=== PATIENT | female | born 1995 | race Caucasian/White ===

== ENCOUNTER 2019-06-06 19:15 | Emergency (ER) | payer MEDICAID ==
[2019-06-06] MEDS ORDERED: Levofloxacin 750 MG Tab PO STA (20:24)
--- NOTE | 2019-06-06 20:33 | EDM.PDOC ---
ED HPI GENERAL MEDICAL PROBLEM - General Chief Complaint: Genitourinary Problem Stated Complaint: LOWER BACK PAIN Time Seen by Provider: 06/06/19 20:02 Source of Information: Reports: Patient History Limitations: Reports: No Limitations - History of Present Illness INITIAL COMMENTS - FREE TEXT/NARRATIVE: Ms. Jackson is a very pleasant 23-year-old woman with no chronic medical problems , who states that she developed bilateral flank pain, worse on the right than the left, yesterday. She had nausea and chills yesterday, but she did not check her temperature. She has not had any dysuria, but she has had both urinary frequency and urinary urgency. She developed the sensation of bladder fullness last night, which has become more profound today. The patient states that she started taking gyxh-drj-weuqodm Azo yesterday, and continued it today. The patient states that she had similar symptoms, excluding the flank pain, several years ago, due to a UTI. The patient denies recent sore throat, ear pain, nasal or sinus congestion, cough, dyspnea, chest pain, palpitations, vomiting, constipation, diarrhea, abdominal pain, recent weight gain or weight loss, recent bloody bowel movements or black bowel movements, recent joint aches, headaches, or rashes. Here in the ED, the patient is found to be hemodynamically stable, afebrile, saturating 99% on room air. The patient is sexually active. Her LMP was 05/27/2019. The patient's PCP is AMAURI Tejada. Her Stemhole Borer And Topper is Dr. Nurys Pérez. She did not receive an influenza vaccine this season, and declined an offer to receive one here today. Lower Back Pain Score (Numeric/FACES): 8 - Related Data Allergies Allergy/AdvReac Type Severity Reaction Status Date / Time No Known Allergies Allergy Verified 06/06/19 19:30 Home Meds: Home Meds Levofloxacin [Levaquin] 1 tab PO QPM #4 tablet 06/06/19 [Rx] Past Medical History - Past Surgical History HEENT Surgical History: Reports: Oral Surgery (wisdom teeth extraction) Social & Family History - Tobacco Use Smoking Status *Q: Never Smoker Tobacco Use Within Last Twelve Months: Vaping (nicotine) - Alcohol Use Alcohol Use History: Yes Alcohol Use Frequency: Socially - Recreational Drug Use Recreational Drug Use: No - Living Situation & Occupation Living situation: Reports: Single, Alone Occupation: Unemployed ED ROS GENERAL - Review of Systems Review Of Systems: Comprehensive ROS is negative, except as noted in HPI. ED EXAM, RENAL/ - Physical Exam Exam: See Below Exam Limited By: No Limitations General Appearance: Alert, WD/WN, No Apparent Distress Eye Exam: Bilateral Eye: EOMI, Normal Inspection Ears: Normal External Exam, Hearing Grossly Normal Nose: Normal Inspection Throat/Mouth: Normal Inspection, Normal Lips, Normal Voice, No Airway Compromise Head: Atraumatic, Normocephalic Neck: Normal Inspection, Full Range of Motion Respiratory/Chest: No Respiratory Distress, Lungs Clear, Normal Breath Sounds, No Accessory Muscle Use Cardiovascular: Normal Peripheral Pulses, Regular Rate, Rhythm, No Edema, No Gallop, No JVD, No Murmur, No Rub GI/Abdominal: Normal Bowel Sounds, Soft, No Organomegaly, No Distention, No Abnormal Bruit, No Mass, Tender (Mild, suprapubic only. Nontender elsewhere.) (Female) Exam: Deferred Rectal (Female) Exam: Deferred Back Exam: Normal Inspection, Full Range of Motion, CVA Tenderness (R). No: CVA Tenderness (L) Extremities: Normal Inspection, Normal Range of Motion, No Pedal Edema, Normal Capillary Refill Neurological: Alert, Oriented, Normal Cognition, No Motor/Sensory Deficits Psychiatric: Normal Affect Skin Exam: Warm, Dry, Intact, Normal Color, No Rash Course - Vital Signs Last Recorded V/S: Last Vital Signs Temp 36.3 C 06/06/19 19:28 Pulse 88 06/06/19 19:28 Resp 16 06/06/19 19:28 BP 112/75 06/06/19 19:28 Pulse Ox 99 06/06/19 19:28 - Orders/Labs/Meds Orders: Active Orders 24 hr Category Date Time Status CULTURE URINE [RM] Stat Lab 06/06/19 19:36 Received Labs: Laboratory Tests 06/06/19 06/06/19 Range/Units 19:36 19:36 Urine Color Mystic H (Yellow) Urine Appearance Slt cloudy H (Clear) Urine pH 5.5 (5.0-8.0) Ur Specific [place] 1.025 (1.005-1.030) Urine Protein 3+ H (Negative) Urine Glucose (UA) Trace H (Negative) Urine Ketones Trace H (Negative) Urine Occult Blood 2+ H (Negative) Urine Nitrite Positive H (Negative) Urine Bilirubin 1+ H (Negative) Urine Urobilinogen 2.0 H (0.2-1.0) Ur Leukocyte Esterase 3+ H (Negative) Urine RBC 20-30 H (0-5) /hpf Urine WBC 75-100 H (0-5) /hpf Ur Epithelial Cells 0-5 (0-5) /hpf Urine Bacteria Moderate H (FEW) /hpf Urine Mucus Few (FEW) /hpf Urine HCG, Qual Negative (NEGATIVE) Meds: Medications Discontinued Medications Generic Name Dose Route Start Last Admin Trade Name Freq PRN Reason Stop Dose Admin Levofloxacin 750 mg 06/06/19 20:24 Levaquin PO 06/06/19 20:25 ONETIME STA - Re-Assessments/Exams Free Text/Narrative Re-Assessment/Exam: 06/06/19 20:30 A urinalysis acquired by the triage nurse is consistent with a UTI. While her symptoms are not profound, she does report having chills yesterday, and she has both bilateral flank pain and right CVA tenderness. In accordance with current guidelines, I therefore have to treat the patient for pyelonephritis, and not simple cystitis. I have therefore ordered levofloxacin, however, I want to check a urine test before we start the medicine. 06/06/19 20:39 The patient's urine test is negative. I will submit a prescription to complete a 5-day course of levofloxacin. Departure - Departure Time of Disposition: 20:40 Disposition: Home, Self-Care 01 Condition: Good Clinical Impression: Pyelonephritis - Discharge Information *PRESCRIPTION DRUG MONITORING PROGRAM REVIEWED*: Not Applicable *COPY OF PRESCRIPTION DRUG MONITORING REPORT IN PATIENT SYEDA: Not Applicable Referrals: Consuelo Fofnaa PA-C [Primary Care Provider] - Nurys Pérez MD [Physician] - Forms: ED Department Discharge Additional Instructions: You were seen in the emergency room for back pain, bladder fullness, nausea with chills, along with urinary frequency and urgency. Work-up in the ER included a urinalysis, which confirmed that you have a urinary tract infection. Based on your history and physical examination, the kidney infection has a send it up into your right, and possibly your left kidney, a condition known as pyelonephritis. You have been started on the antibiotic levofloxacin (Levaquin). A prescription for levofloxacin has been sent to the [facility], located in the [facility] grocery store. Take 1 tablet of levofloxacin every evening, starting tomorrow evening, 06/07/2019, as prescribed. Finish the entire prescription unless told otherwise by your PCP. You should stay adequately hydrated. Cranberry juice is fine, but it does not contain any special urinary tract-treating properties. You may to continue to take zrcq-qdm-rdeibig Azo, however, she should limit your doses to 6 tablets total. As you are aware, Azo will turn your urine orange. We recommend that you follow-up with the office of your PCP, AMAURI Tejada , on Monday morning, 06/10/2019, to have them check on your urine culture results , to make sure that you are on the correct antibiotic. If your symptoms worsen, such as if you develop a fever, vomiting, or increased pain, please do not hesitate to return to the ER. Sepsis Event Note - Evaluation Sepsis Screening Result: No Definite Risk - Focused Exam Vital Signs: Vital Signs Temp Pulse Resp BP Pulse Ox 06/06/19 19:28 36.3 C 88 16 112/75 99 Date Exam was Performed: 06/06/19 Time Exam was Performed: 20:39 - My Orders Last 24 Hours: My Active Orders 06/06/19 19:36 CULTURE URINE [RM] Stat - Assessment/Plan Last 24 Hours: My Active Orders 06/06/19 19:36 CULTURE URINE [RM] Stat
== END 2019-06-06 21:02 | disposition home or self-care (01) ==
LOC: JD.ED 19:15
DX: N12 Tubulo-interstitial nephritis, not specified as acute or chronic (principal)
CPT/HCPCS: 81001; 81025; 87086; 87088; 87186; 99284; A9270; 99283

== ENCOUNTER 2019-06-07 00:57 | Emergency (ER) | payer SELFPAY ==
[2019-06-07] MEDS ORDERED: Orphenadrine 100 MG Tab.ER PO STA (01:21)
[2019-06-07] MEDS ORDERED: Ondansetron 4 MG Tab.DIS PO ONE (01:25)
--- NOTE | 2019-06-07 01:27 | EDM.PDOC ---
ED HPI GENERAL MEDICAL PROBLEM - General Chief Complaint: Back Pain or Injury Stated Complaint: SEVERE BODY CRAMPS Time Seen by Provider: 06/07/19 01:09 Source of Information: Reports: Patient History Limitations: Reports: No Limitations - History of Present Illness INITIAL COMMENTS - FREE TEXT/NARRATIVE: Ms. Jackson is a very pleasant 23-year-old woman with no chronic medical problems , who was seen by me in this ED last night with a complaint of bilateral flank pain, worse on the right than left, since 06/05/2019. She had had nausea and chills on Monday, but she had not checked her temperature. She did not have any dysuria, but she did have both urinary frequency and urinary urgency. She had developed the sensation of bladder fullness Monday night, which became more profound yesterday. She reported that she had started taking ognm-uuz-rkmjlpc Azo on Monday, and continue to yesterday. She reported that she had had similar symptoms, excluding flank pain, several years prior, due to a UTI. In the ED last night, she was found to be hemodynamically stable , afebrile, saturating 99% on room air. Her examination was remarkable for mild tenderness suprapubically only, with no tenderness elsewhere. She had right CVA tenderness. A urinalysis was consistent with a UTI, and a urine culture was sent. The patient was diagnosed with pyelonephritis, and started on Levaquin. A prescription to complete a 5-day course was provided. The patient was encouraged to return to the ED for worsening symptoms. The patient now returns to the ED stating that, indeed, after she returned home , her back pain got progressively worse. It feels like back spasms. The pain has caused her to have nausea, although she has not vomited. She states that she has not taken any uzkj-rbo-ouajdju analgesics, such as acetaminophen or ibuprofen. Here in the ED, the patient is again found to be hemodynamically stable, afebrile, saturating 100% on room air. The patient's PCP is AMAURI Tejada. Her Veterinary Laboratory Technician is Dr. Nurys Pérez. She did not receive an influenza vaccine this season, and declined an offer to receive one last night. Bilateral Lower Back Pain Score (Numeric/FACES): 10 - Related Data Allergies Allergy/AdvReac Type Severity Reaction Status Date / Time No Known Allergies Allergy Verified 06/07/19 01:09 Home Meds: Home Meds Levofloxacin [Levaquin] 1 tab PO QPM #4 tablet 06/06/19 [Rx] Ondansetron [Zofran ODT] 1 tab PO Q8H PRN #10 tab.dis 06/07/19 [Rx] Orphenadrine [Norflex] 1 tab PO Q12H PRN #14 tab.er 06/07/19 [Rx] Past Medical History - Past Surgical History HEENT Surgical History: Reports: Oral Surgery (wisdom teeth extraction) Social & Family History - Family History Family Medical History: Noncontributory - Tobacco Use Smoking Status *Q: Never Smoker Tobacco Use Within Last Twelve Months: Vaping (nicotine) - Caffeine Use Caffeine Use: Reports: Soda - Alcohol Use Alcohol Use History: Yes Alcohol Use Frequency: Socially - Recreational Drug Use Recreational Drug Use: No - Living Situation & Occupation Living situation: Reports: Single, Alone Occupation: Unemployed ED ROS GENERAL - Review of Systems Review Of Systems: Comprehensive ROS is negative, except as noted in HPI. ED EXAM, RENAL/ - Physical Exam Exam: See Below Exam Limited By: No Limitations General Appearance: Alert, WD/WN, Mild Distress (tearful) Eye Exam: Bilateral Eye: EOMI, Normal Inspection Ears: Normal External Exam, Hearing Grossly Normal Nose: Normal Inspection Throat/Mouth: Normal Inspection, Normal Lips, Normal Voice, No Airway Compromise Head: Atraumatic, Normocephalic Neck: Normal Inspection, Full Range of Motion Respiratory/Chest: No Respiratory Distress, Lungs Clear, Normal Breath Sounds, No Accessory Muscle Use Cardiovascular: Normal Peripheral Pulses, Regular Rate, Rhythm, No Edema, No Gallop, No JVD, No Murmur, No Rub GI/Abdominal: Normal Bowel Sounds, Soft, No Organomegaly, No Distention, No Abnormal Bruit, No Mass, Tender (Suprapubic only, nontender elsewhere, however, palpation of the left abdomen induces pain in her left flank) (Female) Exam: Deferred Rectal (Female) Exam: Deferred Back Exam: Normal Inspection, Full Range of Motion, CVA Tenderness (R). No: CVA Tenderness (L) Extremities: Normal Inspection, Normal Range of Motion, No Pedal Edema, Normal Capillary Refill Neurological: Alert, Oriented, Normal Cognition, No Motor/Sensory Deficits Psychiatric: Normal Affect Skin Exam: Warm, Dry, Intact, Normal Color, No Rash Course - Vital Signs Last Recorded V/S: Last Vital Signs Temp 38.0 C 06/07/19 01:04 Pulse 88 06/07/19 01:04 Resp 22 H 06/07/19 01:04 BP 115/76 06/07/19 01:04 Pulse Ox 100 06/07/19 01:04 - Orders/Labs/Meds Meds: Medications Discontinued Medications Generic Name Dose Route Start Last Admin Trade Name Freq PRN Reason Stop Dose Admin Ondansetron HCl 4 mg 06/07/19 01:25 06/07/19 01:28 Zofran Odt PO 06/07/19 01:26 4 mg ONETIME ONE Administration Orphenadrine Citrate 100 mg 06/07/19 01:21 06/07/19 01:28 Norflex PO 06/07/19 01:22 100 mg ONETIME STA Administration - Re-Assessments/Exams Free Text/Narrative Re-Assessment/Exam: 06/07/19 01:22 As above, the patient appears to be experiencing worsening back pain related to her previously diagnosed pyelonephritis. Her examination is not significantly different than from last night. Her pain is likely a combination of the kidney pain itself, as well as associated back muscle spasm. For today's purposes, we will start the patient on Norflex and Zofran, and I will submit prescriptions for the same. She will be discharged home with a prescription for [place] via [facility], however, since she drove herself here, we cannot start her on that here in the ED. I would also like her to start taking sdcy-gal-hlzpfbs ibuprofen yazqxs-gwc-rsnij. Her earlier instructions of staying adequately hydrated and taking levofloxacin every evening still apply, of course. Departure - Departure Time of Disposition: :26 Disposition: Home, Self-Care 01 Condition: Good Clinical Impression: Pyelonephritis, Back muscle spasm - Discharge Information *PRESCRIPTION DRUG MONITORING PROGRAM REVIEWED*: Not Applicable *COPY OF PRESCRIPTION DRUG MONITORING REPORT IN PATIENT SYEDA: Not Applicable Prescriptions: Ondansetron [Zofran ODT] 1 tab PO Q8H PRN #10 tab.dis PRN Reason: Nausea/Vomiting Orphenadrine [Norflex] 1 tab PO Q12H PRN #14 tab.er PRN Reason: Muscle Spasm Instructions: Muscle Cramps and Spasms, [id number] Referrals: Consuelo Fofana PA-C [Primary Care Provider] - Nurys Pérez MD [Physician] - Forms: ED Department Discharge Additional Instructions: You were seen in the emergency room for worsening back pain after being diagnosed with pyelonephritis last night. Based on your history and physical examination, your back pain is most likely due to a combination of pyelonephritis and associated back muscle spasms. You have been started on the muscle relaxant Norflex, and the anti-nausea medicine Zofran. Prescriptions for Norflex and Zofran have been sent to the [facility] located in the [facility] grocery store. A prescription for the opioid pain reliever [place] has been provided to you via [facility]. We recommend that you take 3 tablets (600 mg) of morq-mdq-kjwukbb ibuprofen every 8 hours, dqwwvk-vmc-qxhad, for the next few days. You may take 1 to 2 tablets of [place] up to every 6 hours, as needed for pain not relieved by ibuprofen. Take 1 tablet of Norflex every 12 hours, for the next few days. You may dissolve 1 tablet of Zofran on your tongue up to every 8 hours as needed for nausea/vomiting. Continue to stay adequately hydrated. It does not really matter what type of fluid you drink. Continue to take levofloxacin every evening, starting this evening, Monday, 06/06, as previously prescribed. Finish the entire prescription unless told otherwise by your PCP. Follow-up with your PCP, AMAURI Tejada, on 06/10/2019, to check on your urine culture results, to make sure that you are on the correct antibiotic. If any other problems, please do not hesitate to return to the ER. Sepsis Event Note - Evaluation Sepsis Screening Result: No Definite Risk - Focused Exam Vital Signs: Vital Signs Temp Pulse Resp BP Pulse Ox 06/07/19 01:04 38.0 C 88 22 H 115/76 100 Date Exam was Performed: 06/07/19 Time Exam was Performed: 01:44
== END 2019-06-07 01:45 | disposition home or self-care (01) ==
LOC: JD.ED 00:57
DX: N12 Tubulo-interstitial nephritis, not specified as acute or chronic (principal); M62.830 Muscle spasm of back
CPT/HCPCS: 99283; A9270

== ENCOUNTER 2022-09-22 04:55 | Inpatient (IN) | payer MEDICAID ==
[~2022-09-22 04:55] MED LIST: Sodium Chloride 0.9% 10 ML Syringe FLUSH PRN
[2022-09-22] MEDS ORDERED: Lactated Ringers 1,000 ML IV SCH (05:15)
[2022-09-22 05:33] LABS: BASOPHILS ABSOLUTE AUTO 0.01 K/mm3 (0.01-0.08); BASOPHILS PERCENT AUTO 0.1 % (0.1-1.2); EOSINOPHILS ABSOLUTE AUTO 0.24 K/mm3 (0.04-0.36); EOSINOPHILS PERCENT AUTO 2.7 (0.7-5.8); HEMATOCRIT 32.8 % (34.1-44.9); HEMOGLOBIN 10.2 gm/dl (11.2-15.7); IMMATURE GRAN ABSOLUTE AUTO 0.02 K/mm3 (0.00-0.10); IMMATURE GRAN PERCENT AUTO 0.2 % (<=1.0); LYMPHOCYTES ABSOLUTE AUTO 2.28 K/mm3 (1.18-3.74); LYMPHOCYTES PERCENT AUTO 25.4 % (19.3-51.7); MEAN CORPUSCULAR HEMOGLOBIN 26.4 pg (25.6-32.2); MEAN CORPUSCULAR HGB CONC 31.1 g/dl (32.2-35.5); MEAN PLATELET VOLUME 11.9 fl (9.4-12.3); MONOCYTES ABSOLUTE AUTO 0.91 K/mm3 (0.24-0.36); MONOCYTES PERCENT AUTO 10.2 % (4.7-12.5); NEUTROPHILS PERCENT AUTO 61.4 % (34.0-71.1); PLATELET COUNT,PLT 144 K/mm3 (182-369); RED BLOOD CELL COUNT 3.86 M/mm3 (3.98-5.22); WHITE BLOOD CELL COUNT,WBC 8.96 K/mm3 (3.98-10.04)
[2022-09-22] MEDS: Lactated Ringers 1,000 ML IV SCH ×2 (06:19→06:59)
[2022-09-22] MEDS ORDERED: Citric Acid/Sodium Citrate Solution 30 ML Cup PO ONE ×2 (06:30→07:00)
[2022-09-22] MEDS ORDERED: Metoclopramide 10 MG/2 ML SDV IVPUSH ONE ×2 (06:30→07:00)
[2022-09-22] MEDS ORDERED: Morphine PF 10 MG/10 ML SDV ONE (06:56)
[2022-09-22] MEDS ORDERED: fentaNYL 100 MCG/2 ML SDV ONE (06:56)
[2022-09-22] MEDS ORDERED: ceFAZolin 2 GM in Sodium Chloride 0.9% 50 ML IV ONE (07:00)
[2022-09-22] MEDS ORDERED: Oxytocin 10 Units/1 ML SDV ONE ×2 (07:05→08:22)
[2022-09-22] MEDS ORDERED: ceFAZolin 2 GM Vial ONE (07:05)
[2022-09-22] MEDS ORDERED: Ondansetron 4 MG/2 ML SDV ONE (07:06)
[2022-09-22] MEDS ORDERED: Bupivacaine 0.5% 30 ML SDV ONE (07:07)
[2022-09-22] MEDS ORDERED: Lactated Ringers 1,000 ML ONE (07:52)
[2022-09-22] MEDS ORDERED: Oxytocin/Lactated Ringers 10 UNIT/1,000 ML BAG IV SCH (08:00)
[2022-09-22] MEDS ORDERED: Phenylephrine 1% 10 MG/ML SDV ONE (08:24)
[2022-09-22] MEDS ORDERED: Ketorolac 30 MG/ML SDV ONE (08:31)
[2022-09-22] MEDS ORDERED: diphenhydrAMINE 50 MG/ML SDV IVPUSH ONE ×2 (08:59→09:05)
[2022-09-22] MEDS ORDERED: Sodium Chloride 0.9% 10 ML Syringe FLUSH SCH (09:00)
[2022-09-22] MEDS ORDERED: diphenhydrAMINE 50 MG/ML SDV IVPUSH PRN (09:59)
[2022-09-22] MEDS ORDERED: Acetaminophen/oxyCODONE 325-5 MG Tab PO PRN (09:59)
[2022-09-22] MEDS ORDERED: ePHEDrine 50 MG/ML SDV IVPUSH PRN (09:59)
[2022-09-22] MEDS ORDERED: Dextrose 5%-Lactated Ringers 1,000 ML IV SCH (09:59)
[2022-09-22] MEDS ORDERED: Acetaminophen 325 MG Tab PO PRN (09:59)
[2022-09-22] MEDS ORDERED: Naloxone 0.4 MG/ML SDV IVPUSH PRN (09:59)
[2022-09-22] MEDS: Ketorolac 30 MG/ML SDV IVPUSH SCH ×2 (15:24→20:14)
[2022-09-22] MEDS: Acetaminophen/oxyCODONE 325-5 MG Tab PO PRN (23:45)
[2022-09-23] MEDS: Ketorolac 30 MG/ML SDV IVPUSH SCH (02:57)
[2022-09-23] MEDS: Acetaminophen/oxyCODONE 325-5 MG Tab PO PRN ×3 (05:58→19:40)
[2022-09-23 06:32] LABS: BASOPHILS ABSOLUTE AUTO 0.01 K/mm3 (0.01-0.08); BASOPHILS PERCENT AUTO 0.1 % (0.1-1.2); EOSINOPHILS ABSOLUTE AUTO 0.17 K/mm3 (0.04-0.36); EOSINOPHILS PERCENT AUTO 1.8 (0.7-5.8); HEMATOCRIT 26.8 % (34.1-44.9); IMMATURE GRAN ABSOLUTE AUTO 0.01 K/mm3 (0.00-0.10); IMMATURE GRAN PERCENT AUTO 0.1 % (<=1.0); LYMPHOCYTES ABSOLUTE AUTO 1.66 K/mm3 (1.18-3.74); LYMPHOCYTES PERCENT AUTO 17.3 % (19.3-51.7); MEAN CORPUSCULAR HEMOGLOBIN 26.2 pg (25.6-32.2); MEAN CORPUSCULAR HGB CONC 30.2 g/dl (32.2-35.5); MEAN CORPUSCULAR VOLUME 86.7 fl (79.4-94.8); MEAN PLATELET VOLUME 11.8 fl (9.4-12.3); MONOCYTES ABSOLUTE AUTO 0.91 K/mm3 (0.24-0.36); MONOCYTES PERCENT AUTO 9.5 % (4.7-12.5); NEUTROPHILS ABSOLUTE AUTO 6.81 K/mm3 (1.56-6.13); NEUTROPHILS PERCENT AUTO 71.2 % (34.0-71.1); PLATELET COUNT,PLT 133 K/mm3 (182-369); RED BLOOD CELL COUNT 3.09 M/mm3 (3.98-5.22); WHITE BLOOD CELL COUNT,WBC 9.57 K/mm3 (3.98-10.04)
[2022-09-23 06:43] LABS: HEMOGLOBIN 8.1 gm/dl (11.2-15.7)
[2022-09-23] MEDS: Ibuprofen 600 MG Tab PO PRN ×3 (10:24→21:53)
[2022-09-24] MEDS: Acetaminophen/oxyCODONE 325-5 MG Tab PO PRN ×2 (01:23→08:23)
[2022-09-24] MEDS: Ibuprofen 600 MG Tab PO PRN (06:41)
== END 2022-09-24 13:50 | disposition home or self-care (01) | DRG 788 ==
LOC: JD.OB 04:55
PROVIDERS: ADMIT Obstetrics & Gynecology; ATTEND Obstetrics & Gynecology
PROC: 10D00Z1 Extraction of Products of Conception, Low, Open Approach (ICD-10-PCS; principal; 2022-09-22)
DX: O30.043 Twin pregnancy, dichorionic/diamniotic, third trimester (principal); O32.1XX1 Maternal care for breech presentation, fetus 1; O32.1XX2 Maternal care for breech presentation, fetus 2; Z3A.37 37 weeks gestation of pregnancy; Z87.891 Personal history of nicotine dependence; Z37.2 Twins, both liveborn
CPT/HCPCS: 36415; 59025; 85025; 86592; 86850; 86900; 86901; 93005; 99221; A9270-GY; J0690; J1200; J1885; J2274; J2370; J2405; J2590; J2765; J3010; J3490; J7120

== ENCOUNTER 2023-11-29 10:24 | Day surgery (SDC) | payer MEDICAID ==
[~2023-11-29 10:24] MED LIST changes: +Lidocaine 1% 5 ML VIAL ONE; +Midazolam 1 MG/ML 2 ML SDV ONE; +Ondansetron 4 MG/2 ML SDV ONE; +Propofol 200 MG/20 ML SDV ONE; -Sodium Chloride 0.9% 10 ML Syringe FLUSH PRN; +fentaNYL 100 MCG/2 ML SDV ONE
[2023-11-29] MEDS ORDERED: Lactated Ringers 1,000 ML IV ONE (10:25)
[2023-11-29] MEDS ORDERED: dexmedeTOMIDine HCl 200 MCG/2 ML SDV ONE (11:12)
[2023-11-29] MEDS ORDERED: Ketamine 200 MG/20 ML MDV ONE (11:13)
[2023-11-29] MEDS ORDERED: Ondansetron 4 MG/2 ML SDV ONE (11:14)
[2023-11-29] MEDS: Lidocaine 1% with EPINEPHrine 1:100,000 20 ML MDV ONE (11:34)
== END 2023-11-29 13:03 | disposition home or self-care (01) ==
LOC: JD.SDS 10:24
PROVIDERS: ATTEND Obstetrics & Gynecology
DX: O02.1 Missed abortion (principal); F41.9 Anxiety disorder, unspecified; Z79.899 Other long term (current) drug therapy
CPT/HCPCS: 59820; J2250; J2405; J2704; J3010; J7120; J3490

== ENCOUNTER 2024-01-07 08:34 | Emergency (ER) | payer MEDICAID ==
[2024-01-07] MEDS: Lidocaine 2% Viscous Solution 15 ML UD PO ONE (10:32)
[2024-01-07] MEDS: Bupivacaine 0.25% 10 ML SDV INJECT ONE (10:38)
== END 2024-01-07 11:06 | disposition home or self-care (01) ==
LOC: JD.ED 08:34
DX: K04.7 Periapical abscess without sinus (principal); Z79.899 Other long term (current) drug therapy
CPT/HCPCS: 41800; 99283; A9270; J0665

== ENCOUNTER 2024-11-25 17:55 | Inpatient (IN) | payer MEDICAID ==
[2024-11-25] MEDS ORDERED: Sodium Chloride 0.9% 10 ML Syringe FLUSH PRN (18:23)
[2024-11-25] MEDS ORDERED: Nalbuphine 10 MG/1 ML Vial IVPUSH PRN (18:23)
[2024-11-25 18:44] LABS: BASOPHILS ABSOLUTE AUTO 0.0 K/mm3 (0.0-0.2); BASOPHILS PERCENT AUTO 0.2 % (0.0-1.0); EOSINOPHILS ABSOLUTE AUTO 0.1 K/mm3 (0.0-0.4); EOSINOPHILS PERCENT AUTO 1.0 % (0.0-6.0); IMMATURE GRAN ABSOLUTE AUTO 0.05 K/mm3 (0.00-0.05); IMMATURE GRAN PERCENT AUTO 0.5 % (0.0-0.4); LYMPHOCYTES ABSOLUTE AUTO 1.8 K/mm3 (1.0-4.8); LYMPHOCYTES PERCENT AUTO 16.7 % (24.0-44.0); MEAN PLATELET VOLUME 10.5 fl (9.4-12.3); MONOCYTES ABSOLUTE AUTO 0.9 K/mm3 (0.0-0.8); MONOCYTES PERCENT AUTO 8.3 % (0.0-8.0); NEUTROPHILS ABSOLUTE AUTO 8.1 K/mm3 (1.8-7.7); NEUTROPHILS PERCENT AUTO 73.3 % (41.0-71.0); NRBC ABSOLUTE 0.00 (0.00-0.02); NRBC PERCENT 0.0 % (0.0-0.2); PLATELET COUNT,PLT 145 K/mm3 (150-400); RED BLOOD CELL COUNT 3.97 M/mm3 (4.10-5.30); WHITE BLOOD CELL COUNT,WBC 11.00 K/mm3 (3.9-11.3)
[2024-11-25] MEDS: Lactated Ringers 1,000 ML IV SCH (19:00)
[2024-11-25] MEDS ORDERED: diphenhydrAMINE 50 MG/ML SDV IVPUSH PRN (19:08)
[2024-11-25] MEDS ORDERED: ePHEDrine 50 MG/ML SDV IVPUSH PRN (19:08)
[2024-11-25 19:14] LABS: INR 0.94
[2024-11-25 19:16] LABS: PTT,PARTIAL THROMBOPLSTIN TIME 27.3 SECONDS (21.7-31.4)
[2024-11-25] MEDS: Bupivacaine/fentaNYL/NS 100 ML Bag EPIDUR PRN (19:19)
[2024-11-25] MEDS ORDERED: dexmedeTOMIDine HCl 200 MCG/2 ML SDV ONE (20:23)
[2024-11-25] MEDS ORDERED: fentaNYL 100 MCG/2 ML SDV ONE (20:24)
[2024-11-25] MEDS: Ondansetron 4 MG/2 ML SDV IVPUSH PRN (21:10)
[2024-11-26] MEDS: Oxytocin/0.9 % Sodium Chloride 30 UNIT/500 ML BAG IV SCH (00:35)
[2024-11-26] MEDS: Sodium Chloride 0.9% 10 ML Syringe FLUSH SCH (03:41)
[2024-11-26] MEDS: Benzocaine/Menthol 20%-0.5% Spray 78 GM Cannister TOP PRN (05:19)
[2024-11-26] MEDS: Witch Hazel Medicated Pads 40/Jar TOP PRN (05:19)
[2024-11-26] MEDS ORDERED: FLUOXETINE 10 MG PO SCH (09:00)
[2024-11-26] MEDS ORDERED: AMITRIPTYLINE HCL 150 MG PO SCH (21:00)
== END 2024-11-27 11:45 | disposition home or self-care (01) | DRG 807 ==
LOC: JD.OBCHECK 17:55 → JD.OB 18:01 → OBSVTOIN 18:23 → JD.OB 18:23 → JD.OBCHECK 18:23 → JD.OB 11-26 01:23
PROVIDERS: ADMIT Obstetrics & Gynecology; ATTEND Obstetrics & Gynecology
PROC: 3E0R3BZ Introduction of Anesthetic Agent into Spinal Canal, Percutaneous Approach (ICD-10-PCS; principal; 2024-11-25)
PROC: 10E0XZZ Delivery of Products of Conception, External Approach (ICD-10-PCS; principal; 2024-11-25)
PROC: 0KQM0ZZ Repair Perineum Muscle, Open Approach (ICD-10-PCS; principal; 2024-11-25)
DX: O34.211 Maternal care for low transverse scar from previous cesarean delivery (principal); Z37.0 Single live birth; O99.02 Anemia complicating childbirth; O70.1 Second degree perineal laceration during delivery; Z3A.39 39 weeks gestation of pregnancy; Z98.890 Other specified postprocedural states; Z79.899 Other long term (current) drug therapy; Z87.891 Personal history of nicotine dependence
CPT/HCPCS: 36415; 51702; 59025; 59409; 85025; 85384; 85610; 85730; 86592; A9270-GY; J0665; J2003; J2405; J3010; J3490; J7120; J7999